=== PATIENT | female | born 1945 | race Caucasian/White ===

== ENCOUNTER 2022-06-11 16:43 | Emergency (ER) | payer MEDICARE, OTHER ==
[2022-06-11] MEDS ORDERED: LISINOPRIL20 MG PO (18:14)
[2022-06-11] MEDS ORDERED: TIZANIDINE HCL2 MG PO (18:14)
[2022-06-11] MEDS ORDERED: CLOPIDOGREL75 MG PO (18:15)
[2022-06-11] MEDS ORDERED: METOPROLOL SUCC25 MG PO (18:15)
[2022-06-11] MEDS ORDERED: NIACIN ER500 M1 PO (18:15)
[2022-06-11] MEDS ORDERED: PREGABALIN100 MG PO (18:16)
[2022-06-11] MEDS ORDERED: DULOXETINE HCL60 MG PO (18:16)
[2022-06-11] MEDS ORDERED: PAROXETINE 20MG20 MG PO (18:16)
[2022-06-11] MEDS ORDERED: TRAZODONE HCL150 MG PO (18:16)
[2022-06-11] MEDS ORDERED: REPATHA SY140 MG/1 M PO (18:17)
[2022-06-11] MEDS ORDERED: VICTOZA 3-0.6 MG/0.1 SC (18:17)
== END 2022-06-11 20:51 | disposition home or self-care (01) ==
LOC: FER 16:43
DX: S51.812A Laceration without foreign body of left forearm, initial encounter (principal); I25.2 Old myocardial infarction; E11.9 Type 2 diabetes mellitus without complications; I10 Essential (primary) hypertension; Z23 Encounter for immunization; W45.8XXA Other foreign body or object entering through skin, initial encounter; Y92.009 Unspecified place in unspecified non-institutional (private) residence as the place of occurrence of the external cause
CPT/HCPCS: 90471; 90715; 99282

== ENCOUNTER 2022-06-12 11:04 | Emergency (ER) | payer MEDICARE, OTHER ==
[~2022-06-12 11:04] MED LIST: CLOPIDOGREL75 MG PO; DULOXETINE HCL60 MG PO; LISINOPRIL20 MG PO; METOPROLOL SUCC25 MG PO; NIACIN ER500 M1 PO; PAROXETINE 20MG20 MG PO; PREGABALIN100 MG PO; REPATHA SY140 MG/1 M PO; TIZANIDINE HCL2 MG PO; TRAZODONE HCL150 MG PO; VICTOZA 3-0.6 MG/0.1 SC
== END 2022-06-12 12:08 | disposition home or self-care (01) ==
LOC: FER 11:04
DX: S51.812A Laceration without foreign body of left forearm, initial encounter (principal); I10 Essential (primary) hypertension; E11.9 Type 2 diabetes mellitus without complications; Z79.02 Long term (current) use of antithrombotics/antiplatelets; Z79.4 Long term (current) use of insulin